=== PATIENT | female | born 1945 | race Caucasian/White ===

== ENCOUNTER 2018-07-24 10:43 | Outpatient (CLI) | payer MEDICARE, BC | END 2018-07-24 23:59 | disposition home or self-care (01) | LOC: CARD 10:43 | PROVIDERS: ATTEND Internal Medicine Cardiovascular Disease | DX: M79.89 Other specified soft tissue disorders (principal); M79.605 Pain in left leg; M79.604 Pain in right leg | CPT/HCPCS: 93970-TC ==

== ENCOUNTER 2020-03-05 08:53 | Outpatient (CLI) | payer MEDICARE, BC ==
[2020-03-05 09:53] LABS: BASOPHILS % (AUTO) 0.5 % (0.0-2.0); EOSINOPHILS % (AUTO) 2.7 % (0.0-6.0); HEMATOCRIT 41 % (33-45); HEMOGLOBIN 13.5 g/dL (11.5-14.8); LYMPHOCYTES # (AUTO) 1.7 /CMM (0.8-4.8); LYMPHOCYTES % (AUTO) 18.6 % (20.0-44.0); MEAN CORPUSCULAR HGB CONC 33 g/dl (31.0-36.0); MEAN CORPUSCULAR VOLUME 92 fL (82-100); MONOCYTES # (AUTO) 0.5 /CMM (0.1-1.30); MONOCYTES % (AUTO) 5.5 % (2.0-12.0); NEUTROPHILS # (AUTO) 6.6 /CMM (1.8-8.9); NEUTROPHILS % (AUTO) 72.7 % (43.0-81.0); PLATELET COUNT (AUTO) 285 /CMM (150-450); WHITE BLOOD COUNT (AUTO) 9.1 K/uL (4.3-11.0)
[2020-03-05 10:17] LABS: ALBUMIN 3.8 g/dL (3.4-5.0); BILIRUBIN,TOTAL 0.7 mg/dL (0.2-1.0); CALCIUM, SERUM 9.3 mg/dL (8.5-10.1); CREATININE 0.6 mg/dL (0.6-1.3); TOTAL PROTEIN, SERUM 7.6 g/dL (6.4-8.2)
[2020-03-06 16:13] LABS: *IFE A/G RATIO 1.1 (0.7-1.7); *IFE ALBUMIN 3.6 g/dL (2.9-4.4); *IFE ALPHA-2-GLOBULIN 0.9 g/dL (0.4-1.0); *IFE BETA GLOBULIN 1.1 g/dL (0.7-1.3); *IFE M-SPIKE Not Observed g/dL (Not Observed); *IFEALPHA-1-GLOBULIN 0.3 g/dL (0.0-0.4)
== END 2020-03-05 23:59 | disposition home or self-care (01) ==
LOC: RAD 08:53 → XR 23:59
PROVIDERS: ATTEND Internal Medicine Hematology & Oncology
DX: S22.078A Other fracture of T9-T10 vertebra, initial encounter for closed fracture (principal); S22.088A Other fracture of T11-T12 vertebra, initial encounter for closed fracture; M47.812 Spondylosis without myelopathy or radiculopathy, cervical region; M43.12 Spondylolisthesis, cervical region; M43.16 Spondylolisthesis, lumbar region; D75.1 Secondary polycythemia; M81.0 Age-related osteoporosis without current pathological fracture; X58.XXXA Exposure to other specified factors, initial encounter; Y93.89 Activity, other specified; Y92.89 Other specified places as the place of occurrence of the external cause; Y99.8 Other external cause status
CPT/HCPCS: 36415; 77075-TC; 80053-TC; 82232; 85025-TC

== ENCOUNTER 2023-03-28 10:44 | Inpatient (IN) | payer BC, MEDICARE ==
[2023-03-28] VITALS (20 sets, daily range): BP systolic 102–159; BP diastolic 68–96; TEMP 98–98.6; O2SAT 94–99
[~2023-03-28] VITALS: Ht 152.4 cm; Wt 47.6 kg
[2023-03-28] MEDS ORDERED: DILTIAZEM HCL 25 MG IV ONE ×2 (11:25→11:45)
[2023-03-28] MEDS ORDERED: DILTIAZEM HCL 50 MG IV IV ONE ×2 (11:30→12:00)
[2023-03-28 11:50] LABS: BASOPHILS % (AUTO) 0.3 % (0.0-2.0); EOSINOPHILS % (AUTO) 0.2 % (0.0-6.0); HEMATOCRIT 42 % (33-45); HEMOGLOBIN 13.8 g/dL (11.5-14.8); LYMPHOCYTES % (AUTO) 12.7 % (20.0-44.0); MEAN CORPUSCULAR HEMOGLOBIN 30 PG (26.0-33.0); MEAN CORPUSCULAR HGB CONC 33 g/dl (31.0-36.0); MEAN CORPUSCULAR VOLUME 91 fL (82-100); NEUTROPHILS % (AUTO) 83.8 % (43.0-81.0); PLATELET COUNT (AUTO) 444 K/uL (150-450); RED BLOOD CELL COUNT(AUTO) 4.66 MIL/uL (4.0-5.2); WHITE BLOOD COUNT (AUTO) 10.7 K/uL (4.3-11.0)
[2023-03-28 11:51] LABS: LYMPHOCYTES # (AUTO) 1.4 K/uL (0.8-4.8); MONOCYTES # (AUTO) 0.3 K/uL (0.1-1.30); NEUTROPHILS # (AUTO) 8.9 K/uL (1.8-8.9)
[2023-03-28 11:54] LABS: CALCIUM, SERUM 8.8 mg/dL (8.5-10.1); CARBON DIOXIDE 25 mmol/L (21-32); CHLORIDE 95 mmol/L (98-107); CREATININE 0.9 mg/dL (0.6-1.3); GLUCOSE 162 mg/dL (74-106); POTASSIUM 3.3 mmol/L (3.5-5.1); SODIUM SERUM 132 mmol/L (136-145); UREA NITROGEN, BLOOD 8 mg/dL (7-18)
[2023-03-28] MEDS ORDERED: DILTIAZEM HCL IV 125 MG in IV NS 0.9% 100 ML IV PRN (12:00)
[2023-03-28] MEDS ORDERED: ENOXAPARIN SODIUM 60 MG/0.6 ML DISP.SYRIN SQ ONE ×2 (12:30→12:47)
[2023-03-28] MEDS ORDERED: CHOL100043 PO (13:31)
[2023-03-28] MEDS ORDERED: CYAN-51 PO (13:31)
[2023-03-28] MEDS ORDERED: LOSA50TA39 PO (13:31)
[2023-03-28] MEDS ORDERED: AMLO-212 PO (13:31)
[2023-03-28] MEDS ORDERED: LATA2.5D15 EACHEYE (13:31)
[2023-03-28] MEDS ORDERED: METO25TA20 PO (13:31)
[2023-03-28] MEDS ORDERED: ROSU5TAB PO (13:31)
[2023-03-28] MEDS ORDERED: POLY17PO4 PO (13:31)
[2023-03-28] MEDS ORDERED: POLYETHYLENE GLYCOL 3350 17 GM POWD.PACK PO PRN (14:00)
[2023-03-28] MEDS ORDERED: HYDROCODONE/APAP 5/325MG TABLET PO PRN (14:00)
[2023-03-28] MEDS ORDERED: MAG HYDROX/AL HYDROX/SIMETH 30 ML UDC PO PRN (14:00)
[2023-03-28] MEDS ORDERED: Z GUARD REMEDY 4 OZ OINT TP PRN (14:00)
[2023-03-28] MEDS ORDERED: ACETAMINOPHEN 325 MG TABLET PO PRN (14:00)
[2023-03-28] MEDS ORDERED: MAGNESIUM HYDROXIDE 30 ML UDC PO PRN (14:00)
[2023-03-28] MEDS ORDERED: POTASSIUM CHLORIDE 20 MEQ POWDER PACKET PO ONE (15:30)
[2023-03-28] MEDS ORDERED: LOSARTAN POTASSIUM 50 MG TABLET PO SCH (17:00)
[2023-03-28] MEDS: APIXABAN 5 MG TABLET PO SCH (17:24)
[2023-03-28] MEDS: DILTIAZEM HCL 30 MG TABLET PO SCH ×2 (17:28→22:24)
[2023-03-28] MEDS: ATORVASTATIN 10 MG TABLET PO SCH (22:24)
[2023-03-28] MEDS: LATANOPROST EYE DROP 0.005% 2.5 ML BOTTLE EACHEYE SCH (22:26)
[2023-03-29] VITALS (43 sets, daily range): BP systolic 100–144; BP diastolic 60–105; TEMP 98–98.8; O2SAT 89–96
[2023-03-29] MEDS: DILTIAZEM HCL 30 MG TABLET PO SCH ×4 (04:56→21:26)
[2023-03-29 05:29] LABS: CALCIUM, SERUM 8.1 mg/dL (8.5-10.1); CARBON DIOXIDE 25 mmol/L (21-32); CHLORIDE 99 mmol/L (98-107); CREATININE 0.4 mg/dL (0.6-1.3); GLUCOSE 102 mg/dL (74-106); MAGNESIUM 2.1 mg/dL (1.8-2.4); PHOSPHORUS 2.4 mg/dL (2.5-4.9); POTASSIUM 3.4 mmol/L (3.5-5.1); SODIUM SERUM 133 mmol/L (136-145); UREA NITROGEN, BLOOD 5 mg/dL (7-18)
[2023-03-29 05:31] LABS: BASOPHILS % (AUTO) 0.6 % (0.0-2.0); EOSINOPHILS % (AUTO) 0.7 % (0.0-6.0); HEMATOCRIT 35 % (33-45); HEMOGLOBIN 11.7 g/dL (11.5-14.8); LYMPHOCYTES # (AUTO) 1.6 K/uL (0.8-4.8); LYMPHOCYTES % (AUTO) 25.3 % (20.0-44.0); MEAN CORPUSCULAR HEMOGLOBIN 30 PG (26.0-33.0); MEAN CORPUSCULAR HGB CONC 33 g/dl (31.0-36.0); MEAN CORPUSCULAR VOLUME 90 fL (82-100); MONOCYTES # (AUTO) 0.4 K/uL (0.1-1.30); MONOCYTES % (AUTO) 6.9 % (2.0-12.0); NEUTROPHILS # (AUTO) 4.1 K/uL (1.8-8.9); NEUTROPHILS % (AUTO) 66.5 % (43.0-81.0); PLATELET COUNT (AUTO) 322 K/uL (150-450); RED BLOOD CELL COUNT(AUTO) 3.93 MIL/uL (4.0-5.2); RED CELL DISTRIBUTION WIDTH 16.1 % (11.5-15.0); WHITE BLOOD COUNT (AUTO) 6.2 K/uL (4.3-11.0)
[2023-03-29] MEDS ORDERED: POTASSIUM CHLORIDE 20 MEQ POWDER PACKET GT ONE (07:30)
[2023-03-29] MEDS: PANTOPRAZOLE 40 MG TABLET.DR PO SCH (07:57)
[2023-03-29] MEDS: POTASSIUM CL. PREMIX PERIPHER. 50 ML IV SCH ×2 (07:58→08:57)
[2023-03-29] MEDS: CYANOCOBALAMIN 500 MCG TABLET PO SCH (08:41)
[2023-03-29] MEDS: APIXABAN 5 MG TABLET PO SCH ×2 (08:43→16:09)
[2023-03-29] MEDS: CHOLECALCIFEROL 1,000 UNIT TABLET (VIT D3) PO SCH (08:48)
[2023-03-29] MEDS ORDERED: K PHOS NEUTRAL 250 MG TABLET PO ONE (16:00)
[2023-03-29] MEDS: LATANOPROST EYE DROP 0.005% 2.5 ML BOTTLE EACHEYE SCH (21:25)
[2023-03-29] MEDS: ATORVASTATIN 10 MG TABLET PO SCH (21:25)
[2023-03-30] VITALS (48 sets, daily range): BP systolic 97–154; BP diastolic 61–107; TEMP 98–98.9; O2SAT 91–98
[2023-03-30] MEDS: DILTIAZEM HCL 30 MG TABLET PO SCH (04:38)
[2023-03-30 05:04] LABS: BASOPHILS % (AUTO) 0.2 % (0.0-2.0); EOSINOPHILS % (AUTO) 0.2 % (0.0-6.0); HEMATOCRIT 37 % (33-45); HEMOGLOBIN 12.3 g/dL (11.5-14.8); LYMPHOCYTES # (AUTO) 1.5 K/uL (0.8-4.8); LYMPHOCYTES % (AUTO) 16.4 % (20.0-44.0); MEAN CORPUSCULAR HEMOGLOBIN 30 PG (26.0-33.0); MEAN CORPUSCULAR HGB CONC 33 g/dl (31.0-36.0); MEAN CORPUSCULAR VOLUME 90 fL (82-100); MONOCYTES # (AUTO) 0.4 K/uL (0.1-1.30); NEUTROPHILS # (AUTO) 7.1 K/uL (1.8-8.9); NEUTROPHILS % (AUTO) 78.2 % (43.0-81.0); PLATELET COUNT (AUTO) 331 K/uL (150-450); RED BLOOD CELL COUNT(AUTO) 4.08 MIL/uL (4.0-5.2); RED CELL DISTRIBUTION WIDTH 15.9 % (11.5-15.0)
[2023-03-30 05:33] LABS: CALCIUM, SERUM 8.1 mg/dL (8.5-10.1); CARBON DIOXIDE 22 mmol/L (21-32); CHLORIDE 97 mmol/L (98-107); CREATININE 0.4 mg/dL (0.6-1.3); GLUCOSE 112 mg/dL (74-106); MAGNESIUM 2.2 mg/dL (1.8-2.4); PHOSPHORUS 2.4 mg/dL (2.5-4.9); POTASSIUM 3.6 mmol/L (3.5-5.1); SODIUM SERUM 130 mmol/L (136-145); UREA NITROGEN, BLOOD 6 mg/dL (7-18)
[2023-03-30] MEDS ORDERED: ANESTHESIA TRAY IN PYXIS 1 EA TRAY MC ONE (06:49)
[2023-03-30] MEDS: CHOLECALCIFEROL 1,000 UNIT TABLET (VIT D3) PO SCH (08:25)
[2023-03-30] MEDS: PANTOPRAZOLE 40 MG TABLET.DR PO SCH (08:25)
[2023-03-30] MEDS: CYANOCOBALAMIN 500 MCG TABLET PO SCH (08:26)
[2023-03-30] MEDS: APIXABAN 5 MG TABLET PO SCH ×2 (08:26→17:58)
[2023-03-30] MEDS ORDERED: DILTIAZEM HCL CD 120 MG PO SCH (09:00)
[2023-03-30] MEDS: DRONEDARONE HYDROCHLORIDE 400 MG TABLET PO SCH ×2 (09:40→17:57)
[2023-03-30] MEDS ORDERED: NEUTRA PHOS 1 POWD.PACKET NG ONE (15:30)
[2023-03-30] MEDS ORDERED: NEUTRA PHOS 1 POWD.PACKET PO ONE ×2 (15:30→18:30)
[2023-03-30] MEDS ORDERED: AMIODARONE 150 MG in IV D5W 100 ML IV ONE (17:30)
[2023-03-30] MEDS: AMIODARONE 450 MG in IV D5W 241 ML IV PRN ×2 (17:57→23:27)
[2023-03-30] MEDS: ATORVASTATIN 10 MG TABLET PO SCH (21:39)
[2023-03-30] MEDS: LATANOPROST EYE DROP 0.005% 2.5 ML BOTTLE EACHEYE SCH (21:39)
[2023-03-31] VITALS (71 sets, daily range): BP systolic 100–155; BP diastolic 75–129; TEMP 97–98.8; O2SAT 91–97
[2023-03-31 05:20] LABS: URIC ACID 1.7 mg/dL (2.6-7.2)
[2023-03-31 05:23] LABS: CALCIUM, SERUM 7.7 mg/dL (8.5-10.1); CARBON DIOXIDE 23 mmol/L (21-32); CHLORIDE 95 mmol/L (98-107); CREATININE 0.5 mg/dL (0.6-1.3); GLUCOSE 130 mg/dL (74-106); PHOSPHORUS 2.1 mg/dL (2.5-4.9); POTASSIUM 3.3 mmol/L (3.5-5.1); SODIUM SERUM 128 mmol/L (136-145); UREA NITROGEN, BLOOD 7 mg/dL (7-18)
[2023-03-31] MEDS: PANTOPRAZOLE 40 MG TABLET.DR PO SCH (07:45)
[2023-03-31] MEDS ORDERED: POTASSIUM CHLORIDE 20 MEQ TAB.PRT.SR PO ONE (08:00)
[2023-03-31] MEDS: POTASSIUM PHOSPHATE MM 7.5 MMOL in IV NS 0.9% 100 ML IV SCH ×2 (08:45→12:15)
[2023-03-31] MEDS: DILTIAZEM HCL 30 MG TABLET PO SCH ×3 (08:46→20:16)
[2023-03-31] MEDS: CHOLECALCIFEROL 1,000 UNIT TABLET (VIT D3) PO SCH (08:47)
[2023-03-31] MEDS: CYANOCOBALAMIN 500 MCG TABLET PO SCH (08:47)
[2023-03-31] MEDS: APIXABAN 5 MG TABLET PO SCH ×2 (08:48→16:38)
[2023-03-31] MEDS ORDERED: DIGOXIN INJ 0.5 MG/2 ML AMPUL IV ONE ×2 (10:00→16:00)
[2023-03-31] MEDS: FUROSEMIDE 20 MG/2 ML VIAL IV SCH ×2 (10:50→16:39)
[2023-03-31 14:20] LABS: THYROID STIMULATING HORMONE 5.759 uIU/mL (0.358-3.74)
[2023-03-31] MEDS: POTASSIUM CL. PREMIX PERIPHER. 50 ML IV SCH ×2 (15:17→16:17)
[2023-03-31] MEDS ORDERED: NEUTRA PHOS 1 POWD.PACKET PO ONE (16:30)
[2023-03-31] MEDS ORDERED: NEUTRA PHOS 1 POWD.PACKET NG ONE (16:30)
[2023-03-31] MEDS: LATANOPROST EYE DROP 0.005% 2.5 ML BOTTLE EACHEYE SCH (20:31)
[2023-03-31] MEDS: ATORVASTATIN 10 MG TABLET PO SCH (20:32)
[2023-04-01] VITALS (34 sets, daily range): BP systolic 101–144; BP diastolic 60–105; TEMP 97–97.8; O2SAT 95–99
[2023-04-01] MEDS: DILTIAZEM HCL 30 MG TABLET PO SCH ×4 (02:45→19:54)
[2023-04-01 04:39] LABS: BASOPHILS % (AUTO) 0.2 % (0.0-2.0); EOSINOPHILS # (AUTO) 0.1 K/uL (0.0-0.7); EOSINOPHILS % (AUTO) 0.6 % (0.0-6.0); HEMATOCRIT 39 % (33-45); LYMPHOCYTES # (AUTO) 1.1 K/uL (0.8-4.8); LYMPHOCYTES % (AUTO) 11.9 % (20.0-44.0); MEAN CORPUSCULAR HEMOGLOBIN 30 PG (26.0-33.0); MEAN CORPUSCULAR HGB CONC 34 g/dl (31.0-36.0); MEAN CORPUSCULAR VOLUME 89 fL (82-100); MONOCYTES # (AUTO) 0.5 K/uL (0.1-1.30); NEUTROPHILS # (AUTO) 7.4 K/uL (1.8-8.9); NEUTROPHILS % (AUTO) 81.3 % (43.0-81.0); PLATELET COUNT (AUTO) 304 K/uL (150-450); RED BLOOD CELL COUNT(AUTO) 4.35 MIL/uL (4.0-5.2); WHITE BLOOD COUNT (AUTO) 9.1 K/uL (4.3-11.0)
[2023-04-01 04:56] LABS: ALANINE AMINOTRANSFERASE 29 U/L (12-78); ALBUMIN 2.6 g/dL (3.4-5.0); ALKALINE PHOSPHATASE 83 U/L (46-116); ASPARTATE AMINOTRANSFERASE 20 U/L (15-37); BILIRUBIN,TOTAL 1.3 mg/dL (0.2-1.0); CALCIUM, SERUM 7.8 mg/dL (8.5-10.1); CARBON DIOXIDE 26 mmol/L (21-32); CHLORIDE 96 mmol/L (98-107); CREATININE 0.5 mg/dL (0.6-1.3); GLUCOSE 101 mg/dL (74-106); PHOSPHORUS 2.1 mg/dL (2.5-4.9); POTASSIUM 3.4 mmol/L (3.5-5.1); SODIUM SERUM 129 mmol/L (136-145); TOTAL PROTEIN, SERUM 5.7 g/dL (6.4-8.2); UREA NITROGEN, BLOOD 4 mg/dL (7-18)
[2023-04-01] MEDS: CHOLECALCIFEROL 1,000 UNIT TABLET (VIT D3) PO SCH (08:05)
[2023-04-01] MEDS: PANTOPRAZOLE 40 MG TABLET.DR PO SCH (08:05)
[2023-04-01] MEDS: APIXABAN 5 MG TABLET PO SCH ×2 (08:06→17:07)
[2023-04-01] MEDS: CYANOCOBALAMIN 500 MCG TABLET PO SCH (08:07)
[2023-04-01] MEDS ORDERED: POTASSIUM CHLORIDE 20 MEQ POWDER PACKET PO ONE (10:30)
[2023-04-01] MEDS: POTASSIUM CL. PREMIX PERIPHER. 50 ML IV SCH ×2 (11:09→12:03)
[2023-04-01] MEDS: METOPROLOL TARTRATE 50 MG TABLET PO SCH ×2 (12:04→22:00)
[2023-04-01] MEDS: DIGOXIN 0.125 MG TABLET PO SCH (12:25)
[2023-04-01] MEDS ORDERED: SODIUM BICARBONATE SYR 150 MEQ in IV D5/0.45 NACL 1,000 ML IV PRN (12:30)
[2023-04-01] MEDS ORDERED: SODIUM BICARBONATE SYR 50 MEQ/50 ML DISP.SYRIN IV ONE (12:30)
[2023-04-01] MEDS ORDERED: Sodium Phosphate 15 MMOL in IV NS 0.9% 245 ML IV SCH (20:00)
[2023-04-01] MEDS: ATORVASTATIN 10 MG TABLET PO SCH (22:01)
[2023-04-01] MEDS: LATANOPROST EYE DROP 0.005% 2.5 ML BOTTLE EACHEYE SCH (22:01)
[2023-04-02] VITALS (37 sets, daily range): BP systolic 90–145; BP diastolic 50–93; TEMP 97.6–98.7; O2SAT 90–100
[2023-04-02] MEDS: DILTIAZEM HCL 30 MG TABLET PO SCH ×4 (02:08→20:48)
[2023-04-02 04:59] LABS: CARBON DIOXIDE 26 mmol/L (21-32); CHLORIDE 98 mmol/L (98-107); CREATININE 0.5 mg/dL (0.6-1.3); GLUCOSE 88 mg/dL (74-106); MAGNESIUM 2.1 mg/dL (1.8-2.4); PHOSPHORUS 3.3 mg/dL (2.5-4.9); SODIUM SERUM 132 mmol/L (136-145); UREA NITROGEN, BLOOD 6 mg/dL (7-18)
[2023-04-02 05:11] LABS: THYROID STIMULATING HORMONE 3.319 uIU/mL (0.358-3.74); URIC ACID 1.4 mg/dL (2.6-7.2)
[2023-04-02 05:26] LABS: DIGOXIN 1.27 ng/mL (0.90-2.00)
[2023-04-02] MEDS: CHOLECALCIFEROL 1,000 UNIT TABLET (VIT D3) PO SCH (08:13)
[2023-04-02] MEDS: CYANOCOBALAMIN 500 MCG TABLET PO SCH (08:13)
[2023-04-02] MEDS: METOPROLOL TARTRATE 50 MG TABLET PO SCH ×3 (08:16→20:48)
[2023-04-02] MEDS: PANTOPRAZOLE 40 MG TABLET.DR PO SCH (08:16)
[2023-04-02] MEDS: APIXABAN 5 MG TABLET PO SCH (08:20)
[2023-04-02] MEDS ORDERED: FUROSEMIDE 20 MG/2 ML VIAL IV SCH (09:30)
[2023-04-02] MEDS: DIGOXIN 0.125 MG TABLET PO SCH (13:04)
[2023-04-02] MEDS: ATORVASTATIN 10 MG TABLET PO SCH (20:49)
[2023-04-02] MEDS: LATANOPROST EYE DROP 0.005% 2.5 ML BOTTLE EACHEYE SCH (20:49)
[2023-04-03] VITALS (28 sets, daily range): BP systolic 94–138; BP diastolic 66–97; TEMP 97–98.5; O2SAT 93–98
[2023-04-03] MEDS: DILTIAZEM HCL 30 MG TABLET PO SCH ×2 (02:15→08:00)
[2023-04-03] MEDS: METOPROLOL TARTRATE 50 MG TABLET PO SCH ×3 (05:07→20:31)
[2023-04-03 05:48] LABS: BASOPHILS % (AUTO) 0.7 % (0.0-2.0); EOSINOPHILS # (AUTO) 0.1 K/uL (0.0-0.7); EOSINOPHILS % (AUTO) 1.4 % (0.0-6.0); HEMATOCRIT 37 % (33-45); HEMOGLOBIN 12.4 g/dL (11.5-14.8); LYMPHOCYTES # (AUTO) 1.3 K/uL (0.8-4.8); LYMPHOCYTES % (AUTO) 19.1 % (20.0-44.0); MEAN CORPUSCULAR HEMOGLOBIN 30 PG (26.0-33.0); MEAN CORPUSCULAR HGB CONC 33 g/dl (31.0-36.0); MEAN CORPUSCULAR VOLUME 90 fL (82-100); MONOCYTES # (AUTO) 0.5 K/uL (0.1-1.30); NEUTROPHILS # (AUTO) 4.8 K/uL (1.8-8.9); NEUTROPHILS % (AUTO) 71.8 % (43.0-81.0); PLATELET COUNT (AUTO) 279 K/uL (150-450); RED BLOOD CELL COUNT(AUTO) 4.15 MIL/uL (4.0-5.2); RED CELL DISTRIBUTION WIDTH 15.9 % (11.5-15.0); WHITE BLOOD COUNT (AUTO) 6.7 K/uL (4.3-11.0)
[2023-04-03 06:07] LABS: ALANINE AMINOTRANSFERASE 20 U/L (12-78); ALBUMIN 2.2 g/dL (3.4-5.0); ALKALINE PHOSPHATASE 72 U/L (46-116); ASPARTATE AMINOTRANSFERASE 14 U/L (15-37); BILIRUBIN,DIRECT 0.3 mg/dL (0.0-0.2); BILIRUBIN,TOTAL 0.8 mg/dL (0.2-1.0); CALCIUM, SERUM 7.7 mg/dL (8.5-10.1); CARBON DIOXIDE 27 mmol/L (21-32); CHLORIDE 100 mmol/L (98-107); CREATININE 0.5 mg/dL (0.6-1.3); GLUCOSE 92 mg/dL (74-106); POTASSIUM 3.6 mmol/L (3.5-5.1); SODIUM SERUM 131 mmol/L (136-145); TOTAL PROTEIN, SERUM 5.1 g/dL (6.4-8.2); UREA NITROGEN, BLOOD 10 mg/dL (7-18)
[2023-04-03] MEDS: PANTOPRAZOLE 40 MG TABLET.DR PO SCH (07:30)
[2023-04-03] MEDS: CYANOCOBALAMIN 500 MCG TABLET PO SCH (08:59)
[2023-04-03] MEDS: CHOLECALCIFEROL 1,000 UNIT TABLET (VIT D3) PO SCH (08:59)
[2023-04-03] MEDS: POTASSIUM CL. PREMIX PERIPHER. 50 ML IV SCH ×2 (10:30→11:38)
[2023-04-03] MEDS ORDERED: DILTIAZEM HCL CD 120 MG PO SCH (11:00)
[2023-04-03] MEDS: DILTIAZEM HCL CD 180 MG PO SCH (11:24)
[2023-04-03] MEDS: APIXABAN 5 MG TABLET PO SCH ×2 (11:26→20:31)
[2023-04-03] MEDS: DIGOXIN 0.125 MG TABLET PO SCH (13:44)
[2023-04-03] MEDS: LATANOPROST EYE DROP 0.005% 2.5 ML BOTTLE EACHEYE SCH (21:54)
[2023-04-03] MEDS: ATORVASTATIN 10 MG TABLET PO SCH (21:55)
[2023-04-04] VITALS: BP 128/94; TEMP 97.2; O2SAT 95
[2023-04-04 04:30] VITALS: BP 135/82; TEMP 97.3; O2SAT 94
[2023-04-04] MEDS: METOPROLOL TARTRATE 50 MG TABLET PO SCH ×3 (05:52→21:10)
[2023-04-04 06:06] LABS: CALCIUM, SERUM 7.8 mg/dL (8.5-10.1); CARBON DIOXIDE 27 mmol/L (21-32); CHLORIDE 99 mmol/L (98-107); CREATININE 0.4 mg/dL (0.6-1.3); GLUCOSE 97 mg/dL (74-106); MAGNESIUM 2.1 mg/dL (1.8-2.4); PHOSPHORUS 2.5 mg/dL (2.5-4.9); POTASSIUM 3.2 mmol/L (3.5-5.1); SODIUM SERUM 131 mmol/L (136-145); UREA NITROGEN, BLOOD 8 mg/dL (7-18)
[2023-04-04 06:17] LABS: CHOLESTEROL 121 mg/dL (<200); HDL CHOLESTEROL 55 mg/dL (40-60); LDL 42 mg/dL (0-99); TRIGLYCERIDES 76 mg/dL (30-150)
[2023-04-04 07:22] LABS: BASOPHILS % (AUTO) 0.5 % (0.0-2.0); EOSINOPHILS # (AUTO) 0.1 K/uL (0.0-0.7); EOSINOPHILS % (AUTO) 1.6 % (0.0-6.0); HEMATOCRIT 40 % (33-45); HEMOGLOBIN 13.2 g/dL (11.5-14.8); LYMPHOCYTES # (AUTO) 1.4 K/uL (0.8-4.8); MEAN CORPUSCULAR HEMOGLOBIN 29 PG (26.0-33.0); MEAN CORPUSCULAR HGB CONC 33 g/dl (31.0-36.0); MEAN CORPUSCULAR VOLUME 89 fL (82-100); MONOCYTES # (AUTO) 0.5 K/uL (0.1-1.30); MONOCYTES % (AUTO) 8.3 % (2.0-12.0); NEUTROPHILS # (AUTO) 3.9 K/uL (1.8-8.9); NEUTROPHILS % (AUTO) 65.6 % (43.0-81.0); PLATELET COUNT (AUTO) 308 K/uL (150-450); RED BLOOD CELL COUNT(AUTO) 4.51 MIL/uL (4.0-5.2); RED CELL DISTRIBUTION WIDTH 15.9 % (11.5-15.0); WHITE BLOOD COUNT (AUTO) 5.9 K/uL (4.3-11.0)
[2023-04-04 08:00] VITALS: BP 128/96; TEMP 97.7; O2SAT 97
[2023-04-04] MEDS: PANTOPRAZOLE 40 MG TABLET.DR PO SCH (08:04)
[2023-04-04] MEDS: CYANOCOBALAMIN 500 MCG TABLET PO SCH (08:05)
[2023-04-04] MEDS: CHOLECALCIFEROL 1,000 UNIT TABLET (VIT D3) PO SCH (08:05)
[2023-04-04] MEDS: APIXABAN 5 MG TABLET PO SCH ×2 (08:09→21:11)
[2023-04-04] MEDS: POTASSIUM CL. PREMIX PERIPHER. 50 ML IV SCH ×2 (08:28→09:44)
[2023-04-04] MEDS ORDERED: POTASSIUM CHLORIDE 20 MEQ POWDER PACKET PO ONE (08:30)
[2023-04-04] MEDS ORDERED: DILTIAZEM HCL CD 120 MG PO SCH (09:00)
[2023-04-04] MEDS: DILTIAZEM HCL CD 180 MG PO SCH (10:15)
[2023-04-04 12:00] VITALS: BP 127/100; TEMP 98.4; O2SAT 96
[2023-04-04] MEDS: DIGOXIN 0.125 MG TABLET PO SCH (13:14)
[2023-04-04 16:00] VITALS: BP 137/97; TEMP 97.7; O2SAT 96
[2023-04-04 20:00] VITALS: BP 143/100; TEMP 97.8; O2SAT 97
[2023-04-04] MEDS: ATORVASTATIN 10 MG TABLET PO SCH (21:10)
[2023-04-04] MEDS: LATANOPROST EYE DROP 0.005% 2.5 ML BOTTLE EACHEYE SCH (21:10)
[2023-04-05] VITALS (7 sets, daily range): BP systolic 110–149; BP diastolic 73–100; TEMP 97.4–98.9; O2SAT 93–97
[2023-04-05 03:06] LABS: HBSAG SCREEN Negative (Negative); HEPATITIS A AB, IgM Negative (Negative); HEPATITIS A AB, TOTAL Positive (Negative); HEPATITIS B CORE AB, IgM Negative (Negative); HEPATITIS B SURFACE AB Non Reactive (.)
[2023-04-05] MEDS: METOPROLOL TARTRATE 50 MG TABLET PO SCH ×3 (05:11→20:34)
[2023-04-05] MEDS: PANTOPRAZOLE 40 MG TABLET.DR PO SCH (07:52)
[2023-04-05] MEDS: CHOLECALCIFEROL 1,000 UNIT TABLET (VIT D3) PO SCH (08:29)
[2023-04-05] MEDS: CYANOCOBALAMIN 500 MCG TABLET PO SCH (08:29)
[2023-04-05] MEDS: DILTIAZEM HCL CD 180 MG PO SCH (08:34)
[2023-04-05] MEDS: APIXABAN 5 MG TABLET PO SCH ×2 (08:35→20:34)
[2023-04-05] MEDS ORDERED: FUROSEMIDE 20 MG TABLET PO ONE (09:30)
[2023-04-05] MEDS ORDERED: LACTULOSE 10 G/15 ML UDC (PYXIS) PO ONE ×2 (09:30)
[2023-04-05] MEDS ORDERED: NA PHOS,M-B/NA PHOS,DI-BA 1 EA ENEMA RC PRN (10:00)
[2023-04-05] MEDS: DIGOXIN 0.125 MG TABLET PO SCH (12:18)
[2023-04-05] MEDS: LATANOPROST EYE DROP 0.005% 2.5 ML BOTTLE EACHEYE SCH (21:36)
[2023-04-05] MEDS: ATORVASTATIN 10 MG TABLET PO SCH (21:36)
[2023-04-06] VITALS (8 sets, daily range): BP systolic 106–141; BP diastolic 71–99; TEMP 97.9–98.5; O2SAT 92–97
[2023-04-06] MEDS: METOPROLOL TARTRATE 50 MG TABLET PO SCH ×3 (04:41→20:36)
[2023-04-06 05:49] LABS: BASOPHILS # (AUTO) 0.2 K/uL (0.0-0.2); BASOPHILS % (AUTO) 2.6 % (0.0-2.0); EOSINOPHILS # (AUTO) 0.1 K/uL (0.0-0.7); EOSINOPHILS % (AUTO) 1.3 % (0.0-6.0); HEMATOCRIT 44 % (33-45); HEMOGLOBIN 14.6 g/dL (11.5-14.8); LYMPHOCYTES % (AUTO) 11.5 % (20.0-44.0); MEAN CORPUSCULAR HEMOGLOBIN 30 PG (26.0-33.0); MEAN CORPUSCULAR HGB CONC 33 g/dl (31.0-36.0); MEAN CORPUSCULAR VOLUME 89 fL (82-100); MONOCYTES # (AUTO) 0.4 K/uL (0.1-1.30); MONOCYTES % (AUTO) 4.7 % (2.0-12.0); NEUTROPHILS # (AUTO) 7.2 K/uL (1.8-8.9); NEUTROPHILS % (AUTO) 79.9 % (43.0-81.0); PLATELET COUNT (AUTO) 292 K/uL (150-450); RED BLOOD CELL COUNT(AUTO) 4.92 MIL/uL (4.0-5.2); RED CELL DISTRIBUTION WIDTH 15.7 % (11.5-15.0); WHITE BLOOD COUNT (AUTO) 9.1 K/uL (4.3-11.0)
[2023-04-06 06:16] LABS: CALCIUM, SERUM 8.2 mg/dL (8.5-10.1); CARBON DIOXIDE 24 mmol/L (21-32); CHLORIDE 97 mmol/L (98-107); CREATININE 0.4 mg/dL (0.6-1.3); GLUCOSE 110 mg/dL (74-106); POTASSIUM 2.9 mmol/L (3.5-5.1); SODIUM SERUM 131 mmol/L (136-145); UREA NITROGEN, BLOOD 6 mg/dL (7-18)
[2023-04-06] MEDS: PANTOPRAZOLE 40 MG TABLET.DR PO SCH (07:30)
[2023-04-06] MEDS: CHOLECALCIFEROL 1,000 UNIT TABLET (VIT D3) PO SCH (09:00)
[2023-04-06] MEDS: APIXABAN 5 MG TABLET PO SCH ×2 (09:00→20:35)
[2023-04-06] MEDS: CYANOCOBALAMIN 500 MCG TABLET PO SCH (09:00)
[2023-04-06] MEDS: DILTIAZEM HCL CD 180 MG PO SCH ×2 (09:00→13:56)
[2023-04-06] MEDS: POTASSIUM CL. PREMIX PERIPHER. 50 ML IV SCH ×4 (09:18→12:48)
[2023-04-06] MEDS: DIGOXIN 0.125 MG TABLET PO SCH (12:35)
[2023-04-06 15:20] LABS: CALCIUM, SERUM 8.4 mg/dL (8.5-10.1); CREATININE 0.6 mg/dL (0.6-1.3); POTASSIUM 4.3 mmol/L (3.5-5.1)
[2023-04-06] MEDS ORDERED: DILTIAZEM HCL 25 MG IV IV ONE (15:30)
[2023-04-06] MEDS: LATANOPROST EYE DROP 0.005% 2.5 ML BOTTLE EACHEYE SCH (21:54)
[2023-04-06] MEDS: ATORVASTATIN 10 MG TABLET PO SCH (21:55)
[2023-04-06] MEDS ORDERED: IV NS 0.9% 1,000 ML BAG IV PRN ×3 (22:30→23:00)
[2023-04-06] MEDS ORDERED: IV NS 0.9% 1,000 ML IV PRN (23:00)
[2023-04-06] MEDS ORDERED: DILTIAZEM HCL 25 MG IV ONE (23:33)
[2023-04-06] MEDS: DILTIAZEM HCL IV 125 MG in IV NS 0.9% 100 ML IV PRN (23:49)
[2023-04-07] VITALS (47 sets, daily range): BP systolic 93–156; BP diastolic 60–92; TEMP 97.2–98.5; O2SAT 89–98
[2023-04-07] MEDS ORDERED: DILTIAZEM HCL 25 MG IV ONE (05:34)
[2023-04-07] MEDS: DILTIAZEM HCL IV 125 MG in IV NS 0.9% 100 ML IV PRN (05:40)
[2023-04-07] MEDS: METOPROLOL TARTRATE 50 MG TABLET PO SCH ×4 (05:54→21:39)
[2023-04-07 08:15] LABS: BASOPHILS # (AUTO) 0.1 K/uL (0.0-0.2); BASOPHILS % (AUTO) 1.2 % (0.0-2.0); EOSINOPHILS # (AUTO) 0.1 K/uL (0.0-0.7); HEMATOCRIT 41 % (33-45); HEMOGLOBIN 13.5 g/dL (11.5-14.8); LYMPHOCYTES # (AUTO) 0.7 K/uL (0.8-4.8); LYMPHOCYTES % (AUTO) 8.3 % (20.0-44.0); MEAN CORPUSCULAR HEMOGLOBIN 30 PG (26.0-33.0); MEAN CORPUSCULAR HGB CONC 33 g/dl (31.0-36.0); MEAN CORPUSCULAR VOLUME 90 fL (82-100); MONOCYTES # (AUTO) 0.5 K/uL (0.1-1.30); MONOCYTES % (AUTO) 5.3 % (2.0-12.0); NEUTROPHILS # (AUTO) 7.3 K/uL (1.8-8.9); NEUTROPHILS % (AUTO) 84.2 % (43.0-81.0); PLATELET COUNT (AUTO) 313 K/uL (150-450); RED BLOOD CELL COUNT(AUTO) 4.53 MIL/uL (4.0-5.2); RED CELL DISTRIBUTION WIDTH 15.9 % (11.5-15.0); WHITE BLOOD COUNT (AUTO) 8.7 K/uL (4.3-11.0)
[2023-04-07] MEDS: DILTIAZEM HCL CD 180 MG PO SCH (08:42)
[2023-04-07 08:43] LABS: ALANINE AMINOTRANSFERASE 15 U/L (12-78); ALBUMIN 2.6 g/dL (3.4-5.0); ALKALINE PHOSPHATASE 80 U/L (46-116); ASPARTATE AMINOTRANSFERASE 13 U/L (15-37); CALCIUM, SERUM 8.1 mg/dL (8.5-10.1); CARBON DIOXIDE 24 mmol/L (21-32); CHLORIDE 99 mmol/L (98-107); CREATININE 0.5 mg/dL (0.6-1.3); GLUCOSE 113 mg/dL (74-106); MAGNESIUM 2.2 mg/dL (1.8-2.4); POTASSIUM 3.8 mmol/L (3.5-5.1); SODIUM SERUM 132 mmol/L (136-145); UREA NITROGEN, BLOOD 12 mg/dL (7-18)
[2023-04-07] MEDS: CYANOCOBALAMIN 500 MCG TABLET PO SCH (08:43)
[2023-04-07] MEDS: PANTOPRAZOLE 40 MG TABLET.DR PO SCH (08:44)
[2023-04-07] MEDS: APIXABAN 5 MG TABLET PO SCH ×2 (08:48→21:40)
[2023-04-07] MEDS: ONDANSETRON HCL/PF 4 MG/2 ML VIAL IVP PRN (08:56)
[2023-04-07] MEDS: CHOLECALCIFEROL 1,000 UNIT TABLET (VIT D3) PO SCH (09:15)
[2023-04-07] MEDS: IV 1/2NS 1000 ML 1,000 ML IV PRN (09:15)
[2023-04-07] MEDS ORDERED: LACTULOSE 10 G/15 ML UDC (PYXIS) PO PRN (10:30)
[2023-04-07] MEDS: DIGOXIN 0.125 MG TABLET PO SCH (12:01)
[2023-04-07] MEDS: SUCRALFATE 1 G/10 ML UDC PO SCH ×3 (12:03→21:33)
[2023-04-07] MEDS ORDERED: ANESTHESIA TRAY IN PYXIS 1 EA TRAY MC ONE (13:00)
[2023-04-07] MEDS ORDERED: METOPROLOL TARTRATE INJ 5 MG/5 ML AMPUL ONE (17:48)
[2023-04-07] MEDS: ATORVASTATIN 10 MG TABLET PO SCH (21:39)
[2023-04-07] MEDS: LATANOPROST EYE DROP 0.005% 2.5 ML BOTTLE EACHEYE SCH (22:09)
[2023-04-08] VITALS (69 sets, daily range): BP systolic 70–134; BP diastolic 43–108; TEMP 98–99.5; O2SAT 87–99
[2023-04-08 04:19] LABS: CALCIUM, SERUM 7.9 mg/dL (8.5-10.1); CARBON DIOXIDE 26 mmol/L (21-32); CHLORIDE 100 mmol/L (98-107); CREATININE 0.4 mg/dL (0.6-1.3); GLUCOSE 117 mg/dL (74-106); POTASSIUM 3.9 mmol/L (3.5-5.1); SODIUM SERUM 132 mmol/L (136-145); UREA NITROGEN, BLOOD 12 mg/dL (7-18)
[2023-04-08] MEDS: ONDANSETRON HCL/PF 4 MG/2 ML VIAL IVP PRN (05:21)
[2023-04-08] MEDS: IV 1/2NS 1000 ML 1,000 ML IV PRN (05:21)
[2023-04-08] MEDS: METOPROLOL TARTRATE 50 MG TABLET PO SCH (05:34)
[2023-04-08] MEDS: PANTOPRAZOLE 40 MG TABLET.DR PO SCH (07:30)
[2023-04-08] MEDS: DILTIAZEM HCL IV 125 MG in IV NS 0.9% 100 ML IV PRN ×3 (08:37→16:28)
[2023-04-08] MEDS: DILTIAZEM HCL CD 180 MG PO SCH (08:59)
[2023-04-08] MEDS: SUCRALFATE 1 G/10 ML UDC PO SCH ×4 (08:59→20:13)
[2023-04-08] MEDS: CYANOCOBALAMIN 500 MCG TABLET PO SCH (09:00)
[2023-04-08] MEDS: CHOLECALCIFEROL 1,000 UNIT TABLET (VIT D3) PO SCH (09:00)
[2023-04-08] MEDS: APIXABAN 5 MG TABLET PO SCH (09:00)
[2023-04-08] MEDS ORDERED: METOPROLOL TARTRATE 50 MG TABLET PO SCH (09:00)
[2023-04-08] MEDS ORDERED: ESMOLOL IVPB PREMIX 250 ML IV PRN (11:00)
[2023-04-08 11:22] LABS: BASOPHILS % (AUTO) 0.3 % (0.0-2.0); EOSINOPHILS % (AUTO) 0.7 % (0.0-6.0); HEMATOCRIT 38 % (33-45); HEMOGLOBIN 12.8 g/dL (11.5-14.8); LYMPHOCYTES # (AUTO) 0.5 K/uL (0.8-4.8); LYMPHOCYTES % (AUTO) 8.2 % (20.0-44.0); MEAN CORPUSCULAR HEMOGLOBIN 30 PG (26.0-33.0); MEAN CORPUSCULAR HGB CONC 33 g/dl (31.0-36.0); MEAN CORPUSCULAR VOLUME 90 fL (82-100); MONOCYTES # (AUTO) 0.5 K/uL (0.1-1.30); MONOCYTES % (AUTO) 7.8 % (2.0-12.0); NEUTROPHILS # (AUTO) 4.9 K/uL (1.8-8.9); PLATELET COUNT (AUTO) 259 K/uL (150-450); RED BLOOD CELL COUNT(AUTO) 4.23 MIL/uL (4.0-5.2); WHITE BLOOD COUNT (AUTO) 5.9 K/uL (4.3-11.0)
[2023-04-08] MEDS: ENOXAPARIN SODIUM 60 MG/0.6 ML DISP.SYRIN SQ SCH ×2 (11:45→21:28)
[2023-04-08] MEDS: PANTOPRAZOLE 40 MG VIAL IV SCH (13:20)
[2023-04-08] MEDS: DIGOXIN INJ 0.5 MG/2 ML AMPUL IV SCH (13:21)
[2023-04-08] MEDS: IV NS 0.9% 1,000 ML IV PRN (19:57)
[2023-04-08] MEDS: ATORVASTATIN 10 MG TABLET PO SCH (20:13)
[2023-04-08] MEDS: LATANOPROST EYE DROP 0.005% 2.5 ML BOTTLE EACHEYE SCH (21:23)
[2023-04-09] VITALS (83 sets, daily range): BP systolic 86–121; BP diastolic 51–87; TEMP 97.7–98.6; O2SAT 92–100
[2023-04-09 05:34] LABS: BASOPHILS % (AUTO) 0.3 % (0.0-2.0); EOSINOPHILS % (AUTO) 0.6 % (0.0-6.0); HEMATOCRIT 37 % (33-45); HEMOGLOBIN 12.2 g/dL (11.5-14.8); LYMPHOCYTES # (AUTO) 0.9 K/uL (0.8-4.8); LYMPHOCYTES % (AUTO) 15.2 % (20.0-44.0); MEAN CORPUSCULAR HEMOGLOBIN 30 PG (26.0-33.0); MEAN CORPUSCULAR HGB CONC 33 g/dl (31.0-36.0); MEAN CORPUSCULAR VOLUME 91 fL (82-100); MONOCYTES # (AUTO) 0.4 K/uL (0.1-1.30); MONOCYTES % (AUTO) 7.4 % (2.0-12.0); NEUTROPHILS # (AUTO) 4.6 K/uL (1.8-8.9); NEUTROPHILS % (AUTO) 76.5 % (43.0-81.0); PLATELET COUNT (AUTO) 228 K/uL (150-450); RED BLOOD CELL COUNT(AUTO) 4.14 MIL/uL (4.0-5.2); RED CELL DISTRIBUTION WIDTH 15.8 % (11.5-15.0)
[2023-04-09 05:46] LABS: CALCIUM, SERUM 7.2 mg/dL (8.5-10.1); CARBON DIOXIDE 28 mmol/L (21-32); CHLORIDE 102 mmol/L (98-107); CREATININE 0.4 mg/dL (0.6-1.3); GLUCOSE 96 mg/dL (74-106); POTASSIUM 3.6 mmol/L (3.5-5.1); SODIUM SERUM 134 mmol/L (136-145); UREA NITROGEN, BLOOD 12 mg/dL (7-18)
[2023-04-09 05:47] LABS: INR 1.07 (0.91-1.10); PARTIAL THROMBOPLASTIN TIME 29.2 SEC (24.3-34.3); PROTHROMBIN TIME 11.3 SECS (9.2-11.1)
[2023-04-09] MEDS: CHOLECALCIFEROL 1,000 UNIT TABLET (VIT D3) PO SCH (09:00)
[2023-04-09] MEDS: SUCRALFATE 1 G/10 ML UDC PO SCH ×4 (09:00→21:00)
[2023-04-09] MEDS: CYANOCOBALAMIN 500 MCG TABLET PO SCH (09:00)
[2023-04-09] MEDS: PANTOPRAZOLE 40 MG VIAL IV SCH (09:21)
[2023-04-09] MEDS: ENOXAPARIN SODIUM 60 MG/0.6 ML DISP.SYRIN SQ SCH ×2 (09:22→21:08)
[2023-04-09] MEDS: DIGOXIN INJ 0.5 MG/2 ML AMPUL IV SCH (14:06)
[2023-04-09] MEDS: IV NS 0.9% 1,000 ML IV PRN (16:47)
[2023-04-09] MEDS: DILTIAZEM HCL IV 125 MG in IV NS 0.9% 100 ML IV PRN (16:48)
[2023-04-09] MEDS: ATORVASTATIN 10 MG TABLET PO SCH (21:07)
[2023-04-09] MEDS: LATANOPROST EYE DROP 0.005% 2.5 ML BOTTLE EACHEYE SCH (21:07)
[2023-04-10] VITALS (93 sets, daily range): BP systolic 93–136; BP diastolic 52–120; TEMP 97.5–97.9; O2SAT 7–99
[2023-04-10 05:24] LABS: BASOPHILS % (AUTO) 0.3 % (0.0-2.0); EOSINOPHILS # (AUTO) 0.1 K/uL (0.0-0.7); EOSINOPHILS % (AUTO) 1.1 % (0.0-6.0); HEMATOCRIT 39 % (33-45); HEMOGLOBIN 12.8 g/dL (11.5-14.8); LYMPHOCYTES # (AUTO) 0.8 K/uL (0.8-4.8); LYMPHOCYTES % (AUTO) 13.4 % (20.0-44.0); MEAN CORPUSCULAR HEMOGLOBIN 30 PG (26.0-33.0); MEAN CORPUSCULAR HGB CONC 33 g/dl (31.0-36.0); MEAN CORPUSCULAR VOLUME 91 fL (82-100); MONOCYTES # (AUTO) 0.4 K/uL (0.1-1.30); MONOCYTES % (AUTO) 6.9 % (2.0-12.0); NEUTROPHILS # (AUTO) 4.5 K/uL (1.8-8.9); NEUTROPHILS % (AUTO) 78.3 % (43.0-81.0); PLATELET COUNT (AUTO) 256 K/uL (150-450); RED BLOOD CELL COUNT(AUTO) 4.27 MIL/uL (4.0-5.2); RED CELL DISTRIBUTION WIDTH 16.1 % (11.5-15.0); WHITE BLOOD COUNT (AUTO) 5.7 K/uL (4.3-11.0)
[2023-04-10 05:44] LABS: CALCIUM, SERUM 7.2 mg/dL (8.5-10.1); CARBON DIOXIDE 26 mmol/L (21-32); CHLORIDE 101 mmol/L (98-107); CREATININE 0.4 mg/dL (0.6-1.3); GLUCOSE 81 mg/dL (74-106); POTASSIUM 3.5 mmol/L (3.5-5.1); SODIUM SERUM 136 mmol/L (136-145); UREA NITROGEN, BLOOD 8 mg/dL (7-18)
[2023-04-10] MEDS: ENOXAPARIN SODIUM 60 MG/0.6 ML DISP.SYRIN SQ SCH ×2 (08:18→21:00)
[2023-04-10] MEDS: CYANOCOBALAMIN 500 MCG TABLET PO SCH (08:19)
[2023-04-10] MEDS: PANTOPRAZOLE 40 MG VIAL IV SCH (08:19)
[2023-04-10] MEDS: CHOLECALCIFEROL 1,000 UNIT TABLET (VIT D3) PO SCH (08:19)
[2023-04-10] MEDS: SUCRALFATE 1 G/10 ML UDC PO SCH ×4 (08:19→21:00)
[2023-04-10] MEDS: POTASSIUM CL. PREMIX PERIPHER. 50 ML IV SCH ×4 (09:24→12:49)
[2023-04-10] MEDS: DILTIAZEM HCL IV 125 MG in IV NS 0.9% 100 ML IV PRN ×2 (09:25→23:44)
[2023-04-10 10:21] LABS: C-REACTIVE PROTEIN 2.77 mg/dL (0.0-0.30)
[2023-04-10 12:29] LABS: RHEUMATOID FACTOR SCREEN NEGATIVE (NEGATIVE)
[2023-04-10] MEDS: IV NS 0.9% 1,000 ML IV PRN (13:21)
[2023-04-10] MEDS: DIGOXIN INJ 0.5 MG/2 ML AMPUL IV SCH (13:57)
[2023-04-10] MEDS ORDERED: DILTIAZEM HCL 25 MG IV ONE (20:36)
[2023-04-10] MEDS: ATORVASTATIN 10 MG TABLET PO SCH (22:00)
[2023-04-10] MEDS: LATANOPROST EYE DROP 0.005% 2.5 ML BOTTLE EACHEYE SCH (22:10)
[2023-04-11] VITALS (84 sets, daily range): BP systolic 100–142; BP diastolic 59–101; TEMP 97.6–97.9; O2SAT 78–100
[2023-04-11 05:40] LABS: BASOPHILS % (AUTO) 0.4 % (0.0-2.0); EOSINOPHILS # (AUTO) 0.1 K/uL (0.0-0.7); EOSINOPHILS % (AUTO) 1.5 % (0.0-6.0); HEMATOCRIT 39 % (33-45); HEMOGLOBIN 12.9 g/dL (11.5-14.8); LYMPHOCYTES # (AUTO) 0.7 K/uL (0.8-4.8); LYMPHOCYTES % (AUTO) 15.1 % (20.0-44.0); MEAN CORPUSCULAR HEMOGLOBIN 30 PG (26.0-33.0); MEAN CORPUSCULAR HGB CONC 33 g/dl (31.0-36.0); MEAN CORPUSCULAR VOLUME 90 fL (82-100); MONOCYTES # (AUTO) 0.4 K/uL (0.1-1.30); MONOCYTES % (AUTO) 7.2 % (2.0-12.0); NEUTROPHILS # (AUTO) 3.7 K/uL (1.8-8.9); NEUTROPHILS % (AUTO) 75.8 % (43.0-81.0); PLATELET COUNT (AUTO) 249 K/uL (150-450); RED BLOOD CELL COUNT(AUTO) 4.35 MIL/uL (4.0-5.2); RED CELL DISTRIBUTION WIDTH 15.7 % (11.5-15.0); WHITE BLOOD COUNT (AUTO) 4.9 K/uL (4.3-11.0)
[2023-04-11 05:58] LABS: CALCIUM, SERUM 7.3 mg/dL (8.5-10.1); CARBON DIOXIDE 23 mmol/L (21-32); CHLORIDE 101 mmol/L (98-107); CREATININE 0.3 mg/dL (0.6-1.3); GLUCOSE 84 mg/dL (74-106); POTASSIUM 3.3 mmol/L (3.5-5.1); SODIUM SERUM 135 mmol/L (136-145); UREA NITROGEN, BLOOD 4 mg/dL (7-18)
[2023-04-11] MEDS: PANTOPRAZOLE 40 MG VIAL IV SCH (08:50)
[2023-04-11] MEDS: ENOXAPARIN SODIUM 60 MG/0.6 ML DISP.SYRIN SQ SCH ×2 (08:54→21:00)
[2023-04-11] MEDS: SUCRALFATE 1 G/10 ML UDC PO SCH ×4 (08:55→21:00)
[2023-04-11] MEDS: CHOLECALCIFEROL 1,000 UNIT TABLET (VIT D3) PO SCH (08:55)
[2023-04-11] MEDS: CYANOCOBALAMIN 500 MCG TABLET PO SCH (08:55)
[2023-04-11] MEDS: POTASSIUM CL. PREMIX PERIPHER. 50 ML IV SCH ×2 (10:03→11:05)
[2023-04-11 12:10] LABS: *ANA ANTI-CENTROMERE B AB <0.2 AI (0.0-0.9); *ANA ANTI-DNA(DS) AB, QN <1 IU/mL (0-9); *ANA ANTI-JO-1 <0.2 AI (0.0-0.9); *ANA ANTICHROMATIN ANTIBODY <0.2 AI (0.0-0.9); *ANA RNP ANTIBODIES 0.2 AI (0.0-0.9); *ANA SJOGREN'S ANTI-SS-A <0.2 AI (0.0-0.9); *ANA SJOGREN'S ANTI-SS-B <0.2 AI (0.0-0.9); *ANAANTI-SCLERODERMA-70 AB <0.2 AI (0.0-0.9); *ANASMITH AB <0.2 AI (0.0-0.9)
[2023-04-11] MEDS: DIGOXIN INJ 0.5 MG/2 ML AMPUL IV SCH (13:08)
[2023-04-11] MEDS: DILTIAZEM HCL IV 125 MG in IV NS 0.9% 100 ML IV PRN (13:35)
[2023-04-11] MEDS: IV D5/ 0.9% NACL 1,000 ML IV PRN (13:50)
[2023-04-11] MEDS: ATORVASTATIN 10 MG TABLET PO SCH (22:00)
[2023-04-11] MEDS: LATANOPROST EYE DROP 0.005% 2.5 ML BOTTLE EACHEYE SCH (22:00)
[2023-04-12] VITALS (95 sets, daily range): BP systolic 98–137; BP diastolic 60–116; TEMP 97.6–98.3; O2SAT 81–100
[2023-04-12] MEDS: DILTIAZEM HCL IV 125 MG in IV NS 0.9% 100 ML IV PRN ×3 (01:52→21:17)
[2023-04-12 03:06] LABS: CMV, IgM <30.0 AU/mL (0.0-29.9)
[2023-04-12] MEDS: IV D5/ 0.9% NACL 1,000 ML IV PRN (04:49)
[2023-04-12 05:08] LABS: *EBV AB VCA, IgG >600.0 U/mL (0.0-17.9); *EBV AB VCA, IgM <36.0 U/mL (0.0-35.9)
[2023-04-12 05:10] LABS: CARBON DIOXIDE 28 mmol/L (21-32); CHLORIDE 100 mmol/L (98-107); CREATININE 0.3 mg/dL (0.6-1.3); GLUCOSE 153 mg/dL (74-106); SODIUM SERUM 134 mmol/L (136-145); UREA NITROGEN, BLOOD 3 mg/dL (7-18)
[2023-04-12 05:15] LABS: POTASSIUM 2.8 mmol/L (3.5-5.1)
[2023-04-12 05:18] LABS: BASOPHILS % (AUTO) 0.3 % (0.0-2.0); EOSINOPHILS # (AUTO) 0.1 K/uL (0.0-0.7); EOSINOPHILS % (AUTO) 1.7 % (0.0-6.0); HEMATOCRIT 42 % (33-45); HEMOGLOBIN 13.6 g/dL (11.5-14.8); LYMPHOCYTES # (AUTO) 0.7 K/uL (0.8-4.8); LYMPHOCYTES % (AUTO) 15.8 % (20.0-44.0); MEAN CORPUSCULAR HEMOGLOBIN 29 PG (26.0-33.0); MEAN CORPUSCULAR HGB CONC 33 g/dl (31.0-36.0); MEAN CORPUSCULAR VOLUME 89 fL (82-100); MONOCYTES # (AUTO) 0.4 K/uL (0.1-1.30); MONOCYTES % (AUTO) 7.6 % (2.0-12.0); NEUTROPHILS # (AUTO) 3.5 K/uL (1.8-8.9); NEUTROPHILS % (AUTO) 74.6 % (43.0-81.0); PLATELET COUNT (AUTO) 243 K/uL (150-450); RED BLOOD CELL COUNT(AUTO) 4.66 MIL/uL (4.0-5.2); RED CELL DISTRIBUTION WIDTH 15.5 % (11.5-15.0); WHITE BLOOD COUNT (AUTO) 4.7 K/uL (4.3-11.0)
[2023-04-12] MEDS: POTASSIUM CL. PREMIX PERIPHER. 50 ML IV SCH ×6 (06:53→12:00)
[2023-04-12] MEDS: PANTOPRAZOLE 40 MG VIAL IV SCH (08:25)
[2023-04-12] MEDS: CHOLECALCIFEROL 1,000 UNIT TABLET (VIT D3) PO SCH (08:33)
[2023-04-12] MEDS: SUCRALFATE 1 G/10 ML UDC PO SCH ×4 (08:33→21:59)
[2023-04-12] MEDS: CYANOCOBALAMIN 500 MCG TABLET PO SCH (08:33)
[2023-04-12] MEDS: ENOXAPARIN SODIUM 60 MG/0.6 ML DISP.SYRIN SQ SCH ×2 (09:42→21:58)
[2023-04-12] MEDS: METOCLOPRAMIDE HCL 10 MG/10 ML UDC PO SCH ×3 (12:03→23:07)
[2023-04-12] MEDS: DIGOXIN INJ 0.5 MG/2 ML AMPUL IV SCH (12:04)
[2023-04-12] MEDS: ERYTHROMYCIN ETHYLSUCCINATE 200 MG/5 ML SUSPENSION PO SCH ×2 (12:56→21:59)
[2023-04-12 15:41] LABS: CALCIUM, SERUM 7.1 mg/dL (8.5-10.1); CARBON DIOXIDE 25 mmol/L (21-32); CHLORIDE 99 mmol/L (98-107); CREATININE 0.3 mg/dL (0.6-1.3); GLUCOSE 119 mg/dL (74-106); POTASSIUM 3.9 mmol/L (3.5-5.1); SODIUM SERUM 134 mmol/L (136-145); UREA NITROGEN, BLOOD 3 mg/dL (7-18)
[2023-04-12] MEDS: ATORVASTATIN 10 MG TABLET PO SCH (21:59)
[2023-04-12] MEDS: LATANOPROST EYE DROP 0.005% 2.5 ML BOTTLE EACHEYE SCH (22:00)
[2023-04-13] VITALS (96 sets, daily range): BP systolic 94–143; BP diastolic 62–99; TEMP 97.6–98; O2SAT 93–100
[2023-04-13] MEDS: IV D5/ 0.9% NACL 1,000 ML IV PRN ×2 (00:45→16:57)
[2023-04-13 03:59] LABS: BASOPHILS % (AUTO) 0.4 % (0.0-2.0); EOSINOPHILS # (AUTO) 0.1 K/uL (0.0-0.7); EOSINOPHILS % (AUTO) 1.3 % (0.0-6.0); HEMATOCRIT 42 % (33-45); HEMOGLOBIN 14.1 g/dL (11.5-14.8); LYMPHOCYTES # (AUTO) 0.9 K/uL (0.8-4.8); MEAN CORPUSCULAR HEMOGLOBIN 30 PG (26.0-33.0); MEAN CORPUSCULAR HGB CONC 33 g/dl (31.0-36.0); MEAN CORPUSCULAR VOLUME 88 fL (82-100); MONOCYTES # (AUTO) 0.3 K/uL (0.1-1.30); MONOCYTES % (AUTO) 6.4 % (2.0-12.0); NEUTROPHILS # (AUTO) 4.1 K/uL (1.8-8.9); NEUTROPHILS % (AUTO) 74.9 % (43.0-81.0); PLATELET COUNT (AUTO) 233 K/uL (150-450); RED BLOOD CELL COUNT(AUTO) 4.77 MIL/uL (4.0-5.2); RED CELL DISTRIBUTION WIDTH 15.4 % (11.5-15.0); WHITE BLOOD COUNT (AUTO) 5.5 K/uL (4.3-11.0)
[2023-04-13 04:11] LABS: CARBON DIOXIDE 28 mmol/L (21-32); CHLORIDE 100 mmol/L (98-107); CREATININE 0.4 mg/dL (0.6-1.3); GLUCOSE 154 mg/dL (74-106); POTASSIUM 2.9 mmol/L (3.5-5.1); SODIUM SERUM 135 mmol/L (136-145); UREA NITROGEN, BLOOD 3 mg/dL (7-18)
[2023-04-13] MEDS: ERYTHROMYCIN ETHYLSUCCINATE 200 MG/5 ML SUSPENSION PO SCH ×3 (05:18→21:47)
[2023-04-13] MEDS: METOCLOPRAMIDE HCL 10 MG/10 ML UDC PO SCH ×3 (05:18→17:47)
[2023-04-13] MEDS: DILTIAZEM HCL IV 125 MG in IV NS 0.9% 100 ML IV PRN ×2 (07:26→16:27)
[2023-04-13] MEDS: SUCRALFATE 1 G TABLET PO SCH ×4 (08:57→21:47)
[2023-04-13] MEDS: CYANOCOBALAMIN 500 MCG TABLET PO SCH (08:57)
[2023-04-13] MEDS: CHOLECALCIFEROL 1,000 UNIT TABLET (VIT D3) PO SCH (08:57)
[2023-04-13] MEDS: PANTOPRAZOLE 40 MG TABLET.DR PO SCH (08:57)
[2023-04-13] MEDS: ENOXAPARIN SODIUM 60 MG/0.6 ML DISP.SYRIN SQ SCH ×2 (08:59→21:53)
[2023-04-13] MEDS ORDERED: POTASSIUM CHLORIDE 20 MEQ TAB.PRT.SR PO SCH (10:00)
[2023-04-13] MEDS: POTASSIUM CL. PREMIX PERIPHER. 50 ML IV SCH ×8 (10:26→18:36)
[2023-04-13] MEDS: DIGOXIN INJ 0.5 MG/2 ML AMPUL IV SCH (12:59)
[2023-04-13] MEDS: METOPROLOL TARTRATE 50 MG TABLET PO SCH ×2 (13:43→21:50)
[2023-04-13] MEDS: ATORVASTATIN 10 MG TABLET PO SCH (21:49)
[2023-04-13] MEDS: LATANOPROST EYE DROP 0.005% 2.5 ML BOTTLE EACHEYE SCH (21:51)
[2023-04-14] VITALS (58 sets, daily range): BP systolic 98–132; BP diastolic 62–95; TEMP 97.5–98.3; O2SAT 92–99
[2023-04-14] MEDS: METOCLOPRAMIDE HCL 10 MG/10 ML UDC PO SCH ×4 (00:33→17:26)
[2023-04-14] MEDS: DILTIAZEM HCL IV 125 MG in IV NS 0.9% 100 ML IV PRN (03:19)
[2023-04-14 04:16] LABS: BASOPHILS % (AUTO) 0.7 % (0.0-2.0); EOSINOPHILS # (AUTO) 0.1 K/uL (0.0-0.7); EOSINOPHILS % (AUTO) 1.9 % (0.0-6.0); HEMATOCRIT 39 % (33-45); HEMOGLOBIN 12.6 g/dL (11.5-14.8); LYMPHOCYTES # (AUTO) 1.3 K/uL (0.8-4.8); LYMPHOCYTES % (AUTO) 23.6 % (20.0-44.0); MEAN CORPUSCULAR HEMOGLOBIN 29 PG (26.0-33.0); MEAN CORPUSCULAR HGB CONC 33 g/dl (31.0-36.0); MEAN CORPUSCULAR VOLUME 89 fL (82-100); MONOCYTES # (AUTO) 0.4 K/uL (0.1-1.30); MONOCYTES % (AUTO) 6.9 % (2.0-12.0); NEUTROPHILS # (AUTO) 3.8 K/uL (1.8-8.9); NEUTROPHILS % (AUTO) 66.9 % (43.0-81.0); PLATELET COUNT (AUTO) 220 K/uL (150-450); RED BLOOD CELL COUNT(AUTO) 4.36 MIL/uL (4.0-5.2); RED CELL DISTRIBUTION WIDTH 15.6 % (11.5-15.0); WHITE BLOOD COUNT (AUTO) 5.7 K/uL (4.3-11.0)
[2023-04-14 04:30] LABS: CALCIUM, SERUM 7.4 mg/dL (8.5-10.1); CARBON DIOXIDE 27 mmol/L (21-32); CHLORIDE 104 mmol/L (98-107); CREATININE 0.4 mg/dL (0.6-1.3); GLUCOSE 126 mg/dL (74-106); POTASSIUM 3.6 mmol/L (3.5-5.1); SODIUM SERUM 134 mmol/L (136-145); UREA NITROGEN, BLOOD 1 mg/dL (7-18)
[2023-04-14] MEDS: ERYTHROMYCIN ETHYLSUCCINATE 200 MG/5 ML SUSPENSION PO SCH ×3 (06:10→21:11)
[2023-04-14] MEDS: METOPROLOL TARTRATE 50 MG TABLET PO SCH ×3 (06:11→21:12)
[2023-04-14] MEDS: CHOLECALCIFEROL 1,000 UNIT TABLET (VIT D3) PO SCH (08:56)
[2023-04-14] MEDS: PANTOPRAZOLE 40 MG TABLET.DR PO SCH (08:56)
[2023-04-14] MEDS: CYANOCOBALAMIN 500 MCG TABLET PO SCH (08:56)
[2023-04-14] MEDS: SUCRALFATE 1 G TABLET PO SCH ×4 (08:56→21:12)
[2023-04-14] MEDS ORDERED: DILTIAZEM HCL CD 240 MG PO SCH ×2 (09:00→11:19)
[2023-04-14] MEDS: APIXABAN 5 MG TABLET PO SCH ×2 (09:00→17:28)
[2023-04-14] MEDS: IV D5/ 0.9% NACL 1,000 ML IV PRN (10:12)
[2023-04-14] MEDS: POTASSIUM CL. PREMIX PERIPHER. 50 ML IV SCH ×4 (11:23→15:39)
[2023-04-14] MEDS: DIGOXIN 0.125 MG TABLET PO SCH (12:25)
[2023-04-14] MEDS: ENSURE ENLIVE CHOC 237 ML CAN PO SCH (17:31)
[2023-04-14] MEDS ORDERED: DILTIAZEM HCL CD 120 MG PO ONE (18:00)
[2023-04-14] MEDS: ATORVASTATIN 10 MG TABLET PO SCH (21:12)
[2023-04-14] MEDS: LATANOPROST EYE DROP 0.005% 2.5 ML BOTTLE EACHEYE SCH (21:13)
[2023-04-15] VITALS (42 sets, daily range): BP systolic 90–140; BP diastolic 59–93; TEMP 97–98.6; O2SAT 93–98
[2023-04-15] MEDS: METOCLOPRAMIDE HCL 10 MG/10 ML UDC PO SCH ×2 (00:25→05:20)
[2023-04-15 04:53] LABS: BASOPHILS % (AUTO) 0.8 % (0.0-2.0); EOSINOPHILS # (AUTO) 0.2 K/uL (0.0-0.7); EOSINOPHILS % (AUTO) 3.3 % (0.0-6.0); HEMATOCRIT 39 % (33-45); HEMOGLOBIN 12.6 g/dL (11.5-14.8); LYMPHOCYTES # (AUTO) 1.4 K/uL (0.8-4.8); LYMPHOCYTES % (AUTO) 26.1 % (20.0-44.0); MEAN CORPUSCULAR HEMOGLOBIN 29 PG (26.0-33.0); MEAN CORPUSCULAR HGB CONC 33 g/dl (31.0-36.0); MEAN CORPUSCULAR VOLUME 89 fL (82-100); MONOCYTES # (AUTO) 0.4 K/uL (0.1-1.30); NEUTROPHILS # (AUTO) 3.3 K/uL (1.8-8.9); NEUTROPHILS % (AUTO) 62.8 % (43.0-81.0); PLATELET COUNT (AUTO) 212 K/uL (150-450); RED BLOOD CELL COUNT(AUTO) 4.32 MIL/uL (4.0-5.2); RED CELL DISTRIBUTION WIDTH 15.2 % (11.5-15.0); WHITE BLOOD COUNT (AUTO) 5.2 K/uL (4.3-11.0)
[2023-04-15] MEDS: ERYTHROMYCIN ETHYLSUCCINATE 200 MG/5 ML SUSPENSION PO SCH ×3 (05:19→21:47)
[2023-04-15] MEDS: METOPROLOL TARTRATE 50 MG TABLET PO SCH ×3 (05:20→21:49)
[2023-04-15 05:23] LABS: CALCIUM, SERUM 7.9 mg/dL (8.5-10.1); CARBON DIOXIDE 29 mmol/L (21-32); CHLORIDE 103 mmol/L (98-107); CREATININE 0.3 mg/dL (0.6-1.3); GLUCOSE 103 mg/dL (74-106); POTASSIUM 3.4 mmol/L (3.5-5.1); SODIUM SERUM 135 mmol/L (136-145); UREA NITROGEN, BLOOD 2 mg/dL (7-18)
[2023-04-15] MEDS: ENSURE ENLIVE CHOC 237 ML CAN PO SCH ×2 (08:00→17:28)
[2023-04-15] MEDS: POTASSIUM CL. PREMIX PERIPHER. 50 ML IV SCH ×4 (08:44→12:23)
[2023-04-15] MEDS: PANTOPRAZOLE 40 MG TABLET.DR PO SCH (08:46)
[2023-04-15] MEDS: DILTIAZEM HCL CD 180 MG PO SCH (08:46)
[2023-04-15] MEDS: CHOLECALCIFEROL 1,000 UNIT TABLET (VIT D3) PO SCH (08:46)
[2023-04-15] MEDS: APIXABAN 5 MG TABLET PO SCH ×2 (08:47→17:29)
[2023-04-15] MEDS: SUCRALFATE 1 G TABLET PO SCH ×4 (08:48→21:47)
[2023-04-15] MEDS: CYANOCOBALAMIN 500 MCG TABLET PO SCH (08:48)
[2023-04-15] MEDS ORDERED: METOPROLOL TARTRATE 25 MG TABLET PO ONE (09:00)
[2023-04-15] MEDS: DIGOXIN 0.125 MG TABLET PO SCH (12:25)
[2023-04-15] MEDS: ATORVASTATIN 10 MG TABLET PO SCH (21:47)
[2023-04-15] MEDS: LATANOPROST EYE DROP 0.005% 2.5 ML BOTTLE EACHEYE SCH (21:47)
[2023-04-16] VITALS (28 sets, daily range): BP systolic 92–128; BP diastolic 43–86; TEMP 97.2–98.3; O2SAT 94–98
[2023-04-16] MEDS: ERYTHROMYCIN ETHYLSUCCINATE 200 MG/5 ML SUSPENSION PO SCH ×3 (04:16→21:33)
[2023-04-16] MEDS: METOPROLOL TARTRATE 50 MG TABLET PO SCH ×3 (04:17→21:38)
[2023-04-16 05:32] LABS: BASOPHILS # (AUTO) 0.1 K/uL (0.0-0.2); BASOPHILS % (AUTO) 0.9 % (0.0-2.0); EOSINOPHILS # (AUTO) 0.2 K/uL (0.0-0.7); EOSINOPHILS % (AUTO) 2.8 % (0.0-6.0); HEMATOCRIT 36 % (33-45); HEMOGLOBIN 11.8 g/dL (11.5-14.8); LYMPHOCYTES # (AUTO) 1.5 K/uL (0.8-4.8); LYMPHOCYTES % (AUTO) 23.9 % (20.0-44.0); MEAN CORPUSCULAR HEMOGLOBIN 29 PG (26.0-33.0); MEAN CORPUSCULAR HGB CONC 33 g/dl (31.0-36.0); MEAN CORPUSCULAR VOLUME 89 fL (82-100); MONOCYTES # (AUTO) 0.4 K/uL (0.1-1.30); NEUTROPHILS # (AUTO) 4.1 K/uL (1.8-8.9); NEUTROPHILS % (AUTO) 66.4 % (43.0-81.0); PLATELET COUNT (AUTO) 227 K/uL (150-450); RED BLOOD CELL COUNT(AUTO) 4.06 MIL/uL (4.0-5.2); RED CELL DISTRIBUTION WIDTH 15.5 % (11.5-15.0); WHITE BLOOD COUNT (AUTO) 6.2 K/uL (4.3-11.0)
[2023-04-16 05:51] LABS: ALANINE AMINOTRANSFERASE 23 U/L (12-78); ALBUMIN 1.7 g/dL (3.4-5.0); ALKALINE PHOSPHATASE 59 U/L (46-116); ASPARTATE AMINOTRANSFERASE 26 U/L (15-37); BILIRUBIN,TOTAL 0.5 mg/dL (0.2-1.0); CALCIUM, SERUM 7.4 mg/dL (8.5-10.1); CARBON DIOXIDE 24 mmol/L (21-32); CHLORIDE 107 mmol/L (98-107); CREATININE 0.3 mg/dL (0.6-1.3); GLUCOSE 107 mg/dL (74-106); MAGNESIUM 1.6 mg/dL (1.8-2.4); PHOSPHORUS 1.2 mg/dL (2.5-4.9); SODIUM SERUM 137 mmol/L (136-145); TOTAL PROTEIN, SERUM 4.5 g/dL (6.4-8.2); UREA NITROGEN, BLOOD 6 mg/dL (7-18)
[2023-04-16] MEDS: ENSURE ENLIVE CHOC 237 ML CAN PO SCH ×2 (08:00→17:07)
[2023-04-16] MEDS: PANTOPRAZOLE 40 MG TABLET.DR PO SCH (09:12)
[2023-04-16] MEDS: SUCRALFATE 1 G TABLET PO SCH ×4 (09:12→21:34)
[2023-04-16] MEDS: CHOLECALCIFEROL 1,000 UNIT TABLET (VIT D3) PO SCH (09:13)
[2023-04-16] MEDS: DILTIAZEM HCL CD 180 MG PO SCH (09:15)
[2023-04-16] MEDS: CYANOCOBALAMIN 500 MCG TABLET PO SCH (09:15)
[2023-04-16] MEDS: APIXABAN 5 MG TABLET PO SCH ×2 (09:16→17:20)
[2023-04-16] MEDS ORDERED: POTASSIUM CHLORIDE 20 MEQ POWDER PACKET PO ONE (10:00)
[2023-04-16] MEDS ORDERED: MAGNESIUM OXIDE 400 MG TABLET PO ONE (10:00)
[2023-04-16] MEDS: ONDANSETRON HCL/PF 4 MG/2 ML VIAL IVP PRN (11:46)
[2023-04-16] MEDS: DIGOXIN 0.125 MG TABLET PO SCH (12:50)
[2023-04-16] MEDS: Sodium Phosphate 15 MMOL in IV NS 0.9% 245 ML IV SCH ×2 (17:08→21:03)
[2023-04-16] MEDS: ATORVASTATIN 10 MG TABLET PO SCH (21:34)
[2023-04-16] MEDS: LATANOPROST EYE DROP 0.005% 2.5 ML BOTTLE EACHEYE SCH (21:39)
[2023-04-17] VITALS: BP 107/77; TEMP 98.2; O2SAT 97
[2023-04-17 04:00] VITALS: BP 110/80; TEMP 98.2; O2SAT 97
[2023-04-17] MEDS: METOPROLOL TARTRATE 50 MG TABLET PO SCH ×3 (05:23→21:00)
[2023-04-17] MEDS: ERYTHROMYCIN ETHYLSUCCINATE 200 MG/5 ML SUSPENSION PO SCH ×3 (09:30→21:05)
[2023-04-17] MEDS: DILTIAZEM HCL CD 180 MG PO SCH (09:31)
[2023-04-17] MEDS: SUCRALFATE 1 G TABLET PO SCH ×4 (09:33→21:04)
[2023-04-17] MEDS: CHOLECALCIFEROL 1,000 UNIT TABLET (VIT D3) PO SCH (09:34)
[2023-04-17] MEDS: PANTOPRAZOLE 40 MG TABLET.DR PO SCH (09:36)
[2023-04-17] MEDS: CYANOCOBALAMIN 500 MCG TABLET PO SCH (09:38)
[2023-04-17] MEDS: ENSURE ENLIVE CHOC 237 ML CAN PO SCH ×2 (09:38→17:24)
[2023-04-17] MEDS: APIXABAN 5 MG TABLET PO SCH ×2 (09:43→17:29)
[2023-04-17] MEDS: POTASSIUM CL. PREMIX PERIPHER. 50 ML IV SCH ×4 (11:12→14:26)
[2023-04-17] MEDS: DIGOXIN 0.125 MG TABLET PO SCH (13:27)
[2023-04-17 20:00] VITALS: BP 111/67; TEMP 97.7; O2SAT 95
[2023-04-17] MEDS: ATORVASTATIN 10 MG TABLET PO SCH (21:04)
[2023-04-17] MEDS: LATANOPROST EYE DROP 0.005% 2.5 ML BOTTLE EACHEYE SCH (21:17)
[2023-04-18] VITALS: BP 119/84; TEMP 97.7; O2SAT 95
[2023-04-18 04:00] VITALS: BP 104/72; TEMP 97.7; O2SAT 96
[2023-04-18] MEDS: METOPROLOL TARTRATE 50 MG TABLET PO SCH ×2 (05:00→13:50)
[2023-04-18] MEDS: ERYTHROMYCIN ETHYLSUCCINATE 200 MG/5 ML SUSPENSION PO SCH ×2 (05:18→14:41)
[2023-04-18 07:30] VITALS: BP 97/72; TEMP 97.7; O2SAT 93
[2023-04-18] MEDS: SUCRALFATE 1 G TABLET PO SCH ×3 (09:50→17:34)
[2023-04-18] MEDS: PANTOPRAZOLE 40 MG TABLET.DR PO SCH (09:50)
[2023-04-18] MEDS: CYANOCOBALAMIN 500 MCG TABLET PO SCH (09:50)
[2023-04-18] MEDS: ENSURE ENLIVE CHOC 237 ML CAN PO SCH ×2 (09:50→17:34)
[2023-04-18] MEDS: CHOLECALCIFEROL 1,000 UNIT TABLET (VIT D3) PO SCH (09:50)
[2023-04-18] MEDS: DILTIAZEM HCL CD 180 MG PO SCH (10:06)
[2023-04-18] MEDS: APIXABAN 5 MG TABLET PO SCH ×2 (10:07→18:01)
[2023-04-18] MEDS ORDERED: DILT180C66 PO (11:14)
[2023-04-18] MEDS ORDERED: DIGO125T PO (11:14)
[2023-04-18] MEDS ORDERED: METO50TA16 PO (11:14)
[2023-04-18] MEDS ORDERED: APIX5TAB PO (11:14)
[2023-04-18] MEDS ORDERED: SUCR1TAB31 PO (11:14)
[2023-04-18] MEDS ORDERED: PANT40TA49 PO (11:14)
[2023-04-18 11:23] LABS: BASOPHILS # (AUTO) 0.1 K/uL (0.0-0.2); BASOPHILS % (AUTO) 0.8 % (0.0-2.0); EOSINOPHILS # (AUTO) 0.1 K/uL (0.0-0.7); EOSINOPHILS % (AUTO) 1.5 % (0.0-6.0); HEMATOCRIT 37 % (33-45); HEMOGLOBIN 12.4 g/dL (11.5-14.8); LYMPHOCYTES # (AUTO) 1.3 K/uL (0.8-4.8); MEAN CORPUSCULAR HEMOGLOBIN 29 PG (26.0-33.0); MEAN CORPUSCULAR HGB CONC 33 g/dl (31.0-36.0); MEAN CORPUSCULAR VOLUME 88 fL (82-100); MONOCYTES # (AUTO) 0.4 K/uL (0.1-1.30); MONOCYTES % (AUTO) 6.8 % (2.0-12.0); NEUTROPHILS # (AUTO) 4.3 K/uL (1.8-8.9); NEUTROPHILS % (AUTO) 69.9 % (43.0-81.0); PLATELET COUNT (AUTO) 259 K/uL (150-450); RED BLOOD CELL COUNT(AUTO) 4.23 MIL/uL (4.0-5.2); RED CELL DISTRIBUTION WIDTH 15.4 % (11.5-15.0); WHITE BLOOD COUNT (AUTO) 6.2 K/uL (4.3-11.0)
[2023-04-18 11:28] LABS: CALCIUM, SERUM 8.5 mg/dL (8.5-10.1); CARBON DIOXIDE 32 mmol/L (21-32); CHLORIDE 99 mmol/L (98-107); CREATININE 0.5 mg/dL (0.6-1.3); GLUCOSE 120 mg/dL (74-106); MAGNESIUM 1.7 mg/dL (1.8-2.4); POTASSIUM 3.7 mmol/L (3.5-5.1); SODIUM SERUM 133 mmol/L (136-145); UREA NITROGEN, BLOOD 10 mg/dL (7-18)
[2023-04-18] MEDS: Magnesium 1GM/D5W 100ML PREMIX 100 ML IV SCH ×2 (13:46→14:45)
[2023-04-18] MEDS: DIGOXIN 0.125 MG TABLET PO SCH (13:50)
[2023-04-18 16:31] VITALS: BP 94/61; TEMP 97.9; O2SAT 94
== END 2023-04-18 20:15 | DRG 308 ==
LOC: ER 10:47 → ICU 15:05 → TELE 03-30 11:34 → ICU 03-30 16:57 → TELE 04-03 18:55 → ICU 04-06 23:16 → TELE 04-16 18:12
PROVIDERS: ATTEND Nurse Practitioner Acute Care
PROC: 5A2204Z Restoration of Cardiac Rhythm, Single (ICD-10-PCS; principal; 2023-03-30)
PROC: B246ZZ4 Ultrasonography of Right and Left Heart, Transesophageal (ICD-10-PCS; 2023-03-30)
PROC: 05H633Z Insertion of Infusion Device into Left Subclavian Vein, Percutaneous Approach (ICD-10-PCS; 2023-03-31)
PROC: B547ZZA Ultrasonography of Left Subclavian Vein, Guidance (ICD-10-PCS; 2023-03-31)
PROC: 0DJ08ZZ Inspection of Upper Intestinal Tract, Via Natural or Artificial Opening Endoscopic (ICD-10-PCS; 2023-04-07)
DX: I48.91 Unspecified atrial fibrillation (principal); I50.31 Acute diastolic (congestive) heart failure; E22.2 Syndrome of inappropriate secretion of antidiuretic hormone; J90 Pleural effusion, not elsewhere classified; J98.11 Atelectasis; M48.55XA Collapsed vertebra, not elsewhere classified, thoracolumbar region, initial encounter for fracture; E46 Unspecified protein-calorie malnutrition; M06.9 Rheumatoid arthritis, unspecified; I11.0 Hypertensive heart disease with heart failure; K74.60 Unspecified cirrhosis of liver; E78.5 Hyperlipidemia, unspecified; E87.6 Hypokalemia; R53.1 Weakness; T18.128A Food in esophagus causing other injury, initial encounter; R13.10 Dysphagia, unspecified; K56.41 Fecal impaction; E88.09 Other disorders of plasma-protein metabolism, not elsewhere classified; K29.70 Gastritis, unspecified, without bleeding; Z68.20 Body mass index [BMI] 20.0-20.9, adult; K63.89 Other specified diseases of intestine; K22.4 Dyskinesia of esophagus; I49.5 Sick sinus syndrome; Z86.19 Personal history of other infectious and parasitic diseases; R16.0 Hepatomegaly, not elsewhere classified
CPT/HCPCS: 36410; 36415; 70450-TC; 71045-TC; 71250-TC; 74018; 80048-TC; 80053-TC; 80061-TC; 80076-TC; 80162-TC; 82550-TC; 83735-TC; 84100-TC; 84134-TC; 84439-TC; 84443-TC; 84481; 84484-TC; 84550-TC; 85025-TC; 85652-TC; 85730-TC; 86140-TC; 86225; 86235; 86431-TC; 86644; 86645; 86664; 86706; 86709-TC; 86803; 87340; 92526; 92611-TC; 93307-TC; 93312-TC; 97110-TC; 97116-TC; 97530-TC; A4223; A9563; C9113; G0378; J0282; J1160; J1650; J1940; J2405; J2704; J3475; J3480; J3490; J7030; J7042; J7050; J7060; J8597